=== PATIENT | female | born 1985 | race Caucasian/White ===

== ENCOUNTER 2018-04-19 14:33 | Emergency (ER) | payer BC, OTHER | END 2018-04-19 20:45 | disposition home or self-care (01) | LOC: FTE 14:33 | DX: O99.512 Diseases of the respiratory system complicating pregnancy, second trimester (principal); J32.9 Chronic sinusitis, unspecified; Z3A.20 20 weeks gestation of pregnancy | CPT/HCPCS: 99283 ==

== ENCOUNTER 2018-04-19 15:46 | Outpatient (CLI) | payer BC | END 2018-04-19 18:20 | disposition home or self-care (01) | LOC: OBT 15:46 → L-D 15:47 → OBT 18:20 | DX: O62.9 Abnormality of forces of labor, unspecified (principal); Z3A.20 20 weeks gestation of pregnancy | CPT/HCPCS: 76815; 76817 ==

== ENCOUNTER 2018-04-19 18:26 | Emergency (ER) | payer SELFPAY, BC | END 2018-04-19 21:12 | disposition left against medical advice (07) | LOC: FTE 21:12 | DX: Z53.21 Procedure and treatment not carried out due to patient leaving prior to being seen by health care provider (principal) ==